=== PATIENT | female | born 1955 | race Caucasian/White ===

== ENCOUNTER 2018-09-24 07:24 | Day surgery (SDC) | payer BC ==
[~2018-09-24] VITALS: Ht 154.9 cm; Wt 69.0 kg
[~2018-09-24 07:24] MED LIST: ASPI81TA52 PO; ATOR10TA65 PO; BUSP10TA2 PO; DONE5TAB53 PO; METH10TA5 PO; METO-335 PO; PRAM0.752 PO; RANI150T5 PO
[2018-09-24] MEDS ORDERED: NAPROXEN (07:57)
[2018-09-24] MEDS ORDERED: NEXIUM (07:57)
[2018-09-24] MEDS ORDERED: OYSCO (07:57)
[2018-09-24] MEDS ORDERED: OMEPRAZOLE (07:57)
[2018-09-24 07:59] VITALS: Ht 154.9 cm; Wt 69.0 kg
[2018-09-24 08:27] VITALS: BP 111/56; PULSE 59; RESP 18
[2018-09-24] MEDS ORDERED: PROPOFOL 40 ML ONE (08:58)
--- NOTE | 2018-09-24 08:58 | PREAC ---
Date/Time of Note Date/Time of Note DATE: 09/24/18 TIME: 08:56 Anesthesia Eval and Record Evaluation Time Pre-Procedure Interview DATE: 09/24/18 TIME: 08:56 Age 62 Sex female NPO: 8 hrs Preoperative diagnosis h/o gastric ca, colon ca screen Planned procedure egd, colonocsopy Past Medical History Past Medical History: Includes GI: Other (ho gastric ca) Surgery & Anesthesia Issues No known issue Meds Anticoagulation: No Beta Maria Teresa within 24 hr: No Reason Beta Maria Teresa not given: Pt. not on B-Maria Teresa Reported Medications [Oysco] No Conflict Check 09/24/18 [Omeprazole] No Conflict Check 09/24/18 [Nexium] No Conflict Check 09/24/18 [Naproxen] No Conflict Check 09/24/18 Metoprolol Succinate* (Toprol XL*) 25 Mg Tab.sr.24h, 25 MG PO DAILY, #30 TAB 05/22/18 Atorvastatin Calcium (Atorvastatin Calcium) 10 Mg Tablet, 10 MG PO QHS, #30 TAB 05/22/18 Donepezil* (Aricept*) 5 Mg Tablet, 5 MG PO DAILY, TAB 05/22/18 Ranitidine Hcl* (Ranitidine Hcl*) 150 Mg Tablet, 150 MG PO HS, #30 TAB 05/22/18 Methimazole* (Methimazole*) 10 Mg Tablet, 20 MG PO BID, TAB 05/22/18 Buspirone Hcl* (Buspirone Hcl*) 10 Mg Tab, 10 MG PO Q6 PRN for ANXIETY, TAB 05/22/18 Pramipexole* (Pramipexole*) 0.75 Mg Tablet, 0.75 MG PO BID, TAB 05/22/18 Meds reviewed: Yes Allergies Coded Allergies: No Known Allergy (Unverified , 05/22/18) Allergies Reviewed: Yes Labs/Studies Labs Reviewed: Reviewed by anesthesiologist test: N/A Pre-procedure Exam Last vitals Vital Signs Date Temp Pulse Resp B/P (MAP) Pulse Ox O2 O2 Flow FiO2 Time Delivery Rate 09/24/18 98.3 59 18 111/56 98 Room Air 08:27 (74) Airway: Adequate mouth opening Mallampati: Mallampati II Teeth: Normal Lung: Normal Heart: Normal ASA Physical Status ASA physical status: 2 Emergency: None Pre-operative Attestations Prior to commencing anesthesia and surgery, the patient was re-evaluated, there was verification of: *The patient's identity *The results of appropriate recent lab work and preoperative vital signs *The above evaluation not changing prior to induction *Anesthetic plan, risk benefits, alternative and complications discussed with patient/family; questions answered; patient/family understands, accepts and wishes to proceed. RACH NAM MD September 24, 2018 08:58
[2018-09-24] MEDS ORDERED: LIDOCAINE 2% (SDV) 5 ML INJ ONE (08:59)
[2018-09-24] MEDS ORDERED: morphine (1 MG/ML) 10ML SYRINGE IV PRN (10:00)
[2018-09-24] MEDS ORDERED: ONDANSETRON 4 MG INJ IV PRN (10:00)
--- NOTE | 2018-09-24 10:15 | PAC ---
Date/Time of Note Date/Time of Note DATE: 09/24/18 TIME: 10:15 Post-Anesthesia Notes Post-Anesthesia Note Last documented vital signs Vital Signs Date Temp Pulse Resp B/P (MAP) Pulse Ox O2 O2 Flow FiO2 Time Delivery Rate 09/24/18 98.3 59 18 111/56 98 Room Air 08:27 (74) Activity: WNL Respiratory function: WNL Cardiovascular function: WNL Mental status: Baseline Pain reasonably controlled: Yes Hydration appropriate: Yes Nausea/Vomiting absent: Yes RACH NAM MD September 24, 2018 10:15
== END 2018-09-24 10:57 | disposition home or self-care (01) ==
LOC: GIL 07:24
PROVIDERS: ATTEND Internal Medicine Gastroenterology
DX: Z12.11 Encounter for screening for malignant neoplasm of colon (principal); K64.4 Residual hemorrhoidal skin tags; K22.10 Ulcer of esophagus without bleeding; K20.8 Other esophagitis
CPT/HCPCS: 43239; 45378; 88305; 88312; Z7610